=== PATIENT | female | born 1960 | race African-American/Black ===

== ENCOUNTER 2016-11-21 13:26 | Emergency (ER) | payer OTHER ==
[~2016-11-21] VITALS: Ht 175.3 cm; Wt 83.9 kg
[~2016-11-21 13:26] MED LIST: AMLO5TAB PO
[2016-11-21 13:37] VITALS: BP 121/74
--- NOTE | 2016-11-21 14:10 | NUR ---
Patient to OF2 at this time
--- NOTE | 2016-11-21 14:14 | NUR ---
Patient being evaluated by Dr. Panda
--- NOTE | 2016-11-21 14:17 | NUR ---
PATIENT PRESENTS TO ED WITH C/o bilateral knee pain, X2 DAYS,NO SWELLING NOTED. PT STATES I GOT AFTER EXERCISE, DENIES N/V/D; SKIN IS PINK/WARM/DRY; AAOX4 WITH EVEN AND STEADY GAIT; LUNGS CLEAR BL; HR EVEN AND REGULAR; PT DENIES ANY FEVER, CP, SOB, OR COUGH AT THIS TIME; PATIENT STATES PAIN OF 10/10 AT THIS TIME; PATIENT POSITIONED FOR COMFORT; HOB ELEVATED; BEDRAILS UP X2;
[2016-11-21] MEDS ORDERED: KETOROLAC 60 MG/2 ML VIAL IM ONE (14:35)
[2016-11-21 15:22] VITALS: BP 122/75
--- NOTE | 2016-11-21 15:23 | NUR ---
Patient discharged with v/s stable. Written and verbal after care instructions given and explained. Patient alert, oriented and verbalized understanding of instructions. Ambulatory with steady gait. All questions addressed prior to discharge. ID band removed. Patient advised to follow up with PMD. Rx of norco and celebrex given. Patient educated on indication of medication including possible reaction and side effects. Opportunity to ask questions provided and answered.
== END 2016-11-21 15:23 | disposition home or self-care (01) ==
LOC: MED 13:26
DX: S86.912A Strain of unspecified muscle(s) and tendon(s) at lower leg level, left leg, initial encounter (principal); S86.911A Strain of unspecified muscle(s) and tendon(s) at lower leg level, right leg, initial encounter; M17.0 Bilateral primary osteoarthritis of knee; I10 Essential (primary) hypertension; X50.0XXA Overexertion from strenuous movement or load, initial encounter; Y93.43 Activity, gymnastics; Y92.39 Other specified sports and athletic area as the place of occurrence of the external cause; Y99.8 Other external cause status
CPT/HCPCS: 29505; 81002; 81025; 96372; 99283; J1885; 29515

== ENCOUNTER 2016-12-02 11:06 | Emergency (ER) | payer OTHER ==
[~2016-12-02] VITALS: Ht 172.7 cm; Wt 83.9 kg
[~2016-12-02 11:06] MED LIST changes: -AMLO5TAB PO; +AMLODIPINE10 M1 PO; +BENAZEPRIL; +CLONIDINE0.1 M1 PO; +DYA; +ENALAPRIL10 M1 PO; +NORVASC5 MG PO
[2016-12-02 11:16] VITALS: BP 135/80
--- NOTE | 2016-12-02 11:20 | NUR ---
PATIENT PRESENTS TO ED WITH C/O BILAT KNEE PAIN S/P DOING SQUATS IN THE GYM. STATES RIGHT KNEE KEEPS "POPPING"; DENIES N/V/D; SKIN IS PINK/WARM/DRY; AAOX4 WITH EVEN AND STEADY GAIT; LUNGS CLEAR BL; HR EVEN AND REGULAR; PT DENIES ANY FEVER, CP, SOB, OR COUGH AT THIS TIME; PATIENT STATES PAIN OF 9/10 AT THIS TIME; VSS; PATIENT POSITIONED FOR COMFORT; HOB ELEVATED; BEDRAILS UP X2; BED DOWN. ER MD MADE AWARE OF PT STATUS.
--- NOTE | 2016-12-02 11:22 | NUR ---
DR ARCHER ASSESSING AAO PT AT BEDSIDE
[2016-12-02] MEDS ORDERED: KETOROLAC 60 MG/2 ML VIAL IM ONE (11:30)
[2016-12-02 12:30] VITALS: BP 121/77
== END 2016-12-02 12:30 | disposition home or self-care (01) ==
LOC: MED 11:06
DX: M25.561 Pain in right knee (principal); I10 Essential (primary) hypertension
CPT/HCPCS: 29505; 73562; 96372; 99284; J1885; Q0092

== ENCOUNTER 2017-03-11 14:27 | Emergency (ER) | payer OTHER ==
[~2017-03-11] VITALS: Ht 170.2 cm; Wt 82.6 kg
[~2017-03-11 14:27] MED LIST changes: +AMLO5TAB PO; -AMLODIPINE10 M1 PO; -BENAZEPRIL; -CLONIDINE0.1 M1 PO; -DYA; -ENALAPRIL10 M1 PO; -NORVASC5 MG PO
[2017-03-11 14:51] VITALS: BP 146/97
--- NOTE | 2017-03-11 15:02 | NUR ---
PATIENT IN OF. NECK PSIN TO SHOULDER X2 DAYS AFTER LIFTING WEIGHTS IN THE GYM. YESTERDAY
--- NOTE | 2017-03-11 15:04 | NUR ---
Jian PEREZ,WITH PATIENT IN OF
[2017-03-11] MEDS ORDERED: BUPIVACAINE-MPF 0.5% 10 ML VIAL INJ ONE (15:15)
[2017-03-11] MEDS ORDERED: LIDOCAINE 2% 1000 MG/50 ML VIAL INJ ONE (15:15)
[2017-03-11] MEDS ORDERED: TRIAMCINOLONE 40 MG/ML 5ML VIAL IA ONE (15:15)
--- NOTE | 2017-03-11 15:15 | NUR ---
PATIENT PUT IN BED 5 FOR PROCEDURE. TRIGGER POINT INJECTION OF THE LT. SCAPULA.
--- NOTE | 2017-03-11 15:54 | NUR ---
PATIENT TOLERATED PROCEDURE WELL
--- NOTE | 2017-03-11 15:54 | NUR ---
Kait prado in [facility] - 03/11/17 at 1600 by NOHELIA PROCEDURE TOLERATED PROCEDURE
[2017-03-11 16:05] VITALS: BP 163/97
--- NOTE | 2017-03-11 16:05 | NUR ---
Patient discharged with v/s stable. Written and verbal after care instructions given and explained. Patient alert, oriented and verbalized understanding of instructions. Ambulatory with steady gait. All questions addressed prior to discharge. ID band removed. Patient advised to follow up with PMD. Rx of NORCO,NAPROSYN given. Patient educated on indication of medication including possible reaction and side effects. Opportunity to ask questions provided and answered.
== END 2017-03-11 16:05 | disposition home or self-care (01) ==
LOC: MED 14:27
DX: M54.2 Cervicalgia (principal); M25.512 Pain in left shoulder; I10 Essential (primary) hypertension
CPT/HCPCS: 20552; 99284; J2001; J3301; J3490

== ENCOUNTER 2017-10-14 10:44 | Emergency (ER) | payer OTHER ==
[~2017-10-14] VITALS: Ht 172.7 cm; Wt 81.6 kg
[2017-10-14 10:56] VITALS: BP 137/97
--- NOTE | 2017-10-14 11:15 | NUR ---
PATIENT PRESENTS TO ED WITH B/L KNEE PAIN AND LEFT LEG PAIN . PT STATES A PICTURE FRAME FELL ON HER LEFT LEG CAUSING SWELLING AND BRUISING . DENIES N/V/D; SKIN IS PINK/WARM/DRY; AAOX4 WITH EVEN AND STEADY GAIT; LUNGS CLEAR BL; HR EVEN AND REGULAR; PT DENIES ANY FEVER, CP, SOB, OR COUGH AT THIS TIME; PATIENT STATES PAIN OF 0/10 AT THIS TIME; VSS; PATIENT POSITIONED FOR COMFORT; ER MD MADE AWARE OF PT STATUS.
--- NOTE | 2017-10-14 11:32 | NUR ---
Patient takent to U/S via wheelchair at this time.
[2017-10-14] MEDS ORDERED: IBUPROFEN 800 MG TAB PO ONE (12:05)
[2017-10-14 12:24] VITALS: BP 137/97
--- NOTE | 2017-10-14 12:25 | NUR ---
Patient discharged with v/s stable. Written and verbal after care instructions given and explained. Patient verbalized understanding. Ambulatory with steady gait. All questions addressed prior to discharge. Advised to follow up with PMD.
== END 2017-10-14 12:21 | disposition home or self-care (01) ==
LOC: MED 10:44
DX: S70.12XA Contusion of left thigh, initial encounter (principal); I10 Essential (primary) hypertension; Z79.899 Other long term (current) drug therapy; W20.8XXA Other cause of strike by thrown, projected or falling object, initial encounter; Y93.89 Activity, other specified; Y92.89 Other specified places as the place of occurrence of the external cause; Y99.8 Other external cause status
CPT/HCPCS: 93971; 99284

== ENCOUNTER 2018-03-12 14:58 | Emergency (ER) | payer OTHER ==
[~2018-03-12] VITALS: Ht 172.7 cm; Wt 87.5 kg
[2018-03-12 14:59] VITALS: BP 126/85
--- NOTE | 2018-03-12 15:08 | NUR ---
PT AMBULATED TO ER LOBBY WAITING FOR OPEN ER BED.
--- NOTE | 2018-03-12 15:25 | NUR ---
PT AMULATED TO ER BED 08
--- NOTE | 2018-03-12 15:48 | NUR ---
57/F PRESENT TO ER C/O RT LEG PAIN x 3 DAYS. PT STATES IF SHE STANDS TOO LONG HER RT LEG STARTS FEELING NUMB. PT STATES SHE MIGHT HAVE INJURED IT AT THE GYM LIFTING WEIGHTS. 9/10 ACHING PAIN
[2018-03-12] MEDS ORDERED: KETOROLAC 30 MG/ML VIAL IM ONE (15:55)
[2018-03-12 16:26] VITALS: BP 129/68
--- NOTE | 2018-03-12 16:27 | NUR ---
Patient discharged with v/s stable. Written and verbal after care instructions given and explained. Patient alert, oriented and verbalized understanding of instructions. Ambulatory with steady gait. All questions addressed prior to discharge. ID band removed. Patient advised to follow up with PMD. Rx of VALIUM AND NAPROSYN given. Patient educated on indication of medication including possible reaction and side effects. Opportunity to ask questions provided and answered.
== END 2018-03-12 16:27 | disposition home or self-care (01) ==
LOC: MED 14:58
DX: M54.31 Sciatica, right side (principal); I10 Essential (primary) hypertension; Z79.899 Other long term (current) drug therapy
CPT/HCPCS: 73590; 96372; 99284; J1885; Q0092

== ENCOUNTER 2018-08-07 17:32 | Emergency (ER) | payer OTHER ==
[~2018-08-07] VITALS: Ht 172.7 cm; Wt 87.1 kg
[2018-08-07 17:37] VITALS: BP 122/79
[2018-08-07] MEDS: KETOROLAC 30 MG/ML VIAL IM ONE (18:43)
[2018-08-07 19:11] VITALS: BP 132/76
== END 2018-08-07 19:11 | disposition home or self-care (01) ==
LOC: MED 17:32
DX: G89.29 Other chronic pain (principal); M25.561 Pain in right knee; I10 Essential (primary) hypertension; Z79.899 Other long term (current) drug therapy
CPT/HCPCS: 82948; 96372; 99283; J1885

== ENCOUNTER 2019-04-06 07:02 | Emergency (ER) | payer OTHER ==
[~2019-04-06] VITALS: Ht 172.7 cm; Wt 84.4 kg
[2019-04-06 07:15] VITALS: BP 153/103
--- NOTE | 2019-04-06 07:19 | NUR ---
PT AMBULATED TO BED 01 WITH STEADY GAIT. PT IN RR PROVIDING URINE SAMPLE.
--- NOTE | 2019-04-06 07:20 | NUR ---
58/F C/O 10/10 LEFT SIDE MONTEZ X 2 DAYS ACCOMPANIED BY BLURRED VISION/DRY MOUTH STARTING X 1 DAY AGO. PT STATES "IT FEELS LIKE I'M BEING ZAPPED ON THE SIDE OF MY HEAD". DENIES N/V. PMH-- HTN, ARTHRITIS.PATIENT STATES PAIN OF 10/10 AT THIS TIME. PATIENT POSITIONED FOR COMFORT; HOB ELEVATED; BEDRAILS UP X1; BED DOWN. ER MD MADE AWARE OF PT STATUS.
--- NOTE | 2019-04-06 07:39 | NUR ---
Patient being evaluated by DR BALBUENA at bedside.
[2019-04-06] MEDS: KETOROLAC 60 MG/2 ML VIAL IM ONE (07:45)
[2019-04-06 07:59] VITALS: BP 131/86
== END 2019-04-06 07:59 | disposition home or self-care (01) ==
LOC: MED 07:02
DX: I10 Essential (primary) hypertension (principal); Z79.899 Other long term (current) drug therapy
CPT/HCPCS: 81002; 81025; 96372; 99283; J1885

== ENCOUNTER 2019-05-27 12:59 | Emergency (ER) | payer OTHER ==
--- NOTE | 2019-05-27 13:05 | NUR ---
IST CALL IN ER LOBBY, NO ANSWER
--- NOTE | 2019-05-27 13:11 | NUR ---
PATIENT LEFT WITHOUT BEING SEEN BY DR. PAULSON. NO FURTHER CARE PROVIDED FOR PATIENT.
--- NOTE | 2019-05-27 13:11 | NUR ---
2ND CALL FOR PT IN ER LOBBY, NO ANSWER
== END 2019-05-27 13:11 | disposition left against medical advice (07) ==
LOC: MED 12:59
DX: Z53.21 Procedure and treatment not carried out due to patient leaving prior to being seen by health care provider (principal)

== ENCOUNTER 2019-05-28 11:08 | Emergency (ER) | payer OTHER ==
[~2019-05-28] VITALS: Ht 170.2 cm; Wt 86.6 kg
[2019-05-28 11:12] VITALS: BP 121/92
--- NOTE | 2019-05-28 11:17 | NUR ---
PT AMB TO BED 12 WITH STEADY GAIT
--- NOTE | 2019-05-28 11:30 | NUR ---
58/F BIBS. CAME IN COMPALINING OF KNEE PAIN 05/06. PT STATES SHE FEELS THAT HER "KNEE IS SWOLLEN, FEELS HEAVY AND ALL AROUND THE KNEE AREA THERE IS PAIN" KNEE PAIN STARTED 3X AGO SHE WAS WORKING OUT, DOEW LEG WORKOUTS 2X A WEEK NO HEAVY LIFITING AT MOST 20LBS. KNEE PROBLEMS BEGAN 5-6 YRS AGO. SYMPTOMS FLARE UP EVERY 6 MONTHS HAS GONE TO SEE SPECIALIST. PAIN GETS WORSE WHEN SHE DOES MECHANICAL MOVEMENTS, IS NOT SWOLLED, DISTAL AND POPLITEAL PULSE PRESENT. PATIENT PRESENTED WITH UTI SYMPTOMS X4 DAYS, PAIN ON URINATION, NO CHILLS, NO FEVER, NO FLANK PAIN, NO BLOOD ON URINE. CLEAR YELLOW. URINE SAMPLE COLLECTED. PMHX:ARTHRITIS, HTN RX:AMLODAPINE, PERCOCET
[2019-05-28] MEDS ORDERED: KETOROLAC 30 MG/ML VIAL IM ONE (11:45)
[2019-05-28] MEDS ORDERED: KETOROLAC 30 MG/ML VIAL ONE (11:46)
--- NOTE | 2019-05-28 12:05 | NUR ---
RT AT BEDSIDE
--- NOTE | 2019-05-28 12:42 | NUR ---
Patient discharged with v/s stable. Written and verbal after care instructions given and explained. Patient alert, oriented and verbalized understanding of instructions. Ambulatory with steady gait. All questions addressed prior to discharge. ID band removed. Patient advised to follow up with PMD. Rx of ANAPROX given. Patient educated on indication of medication including possible reaction and side effects. Opportunity to ask questions provided and answered.
--- NOTE | 2019-05-28 12:44 | NUR ---
WAITING ON KNEE BANDAGE ORDER FROM
[2019-05-28 12:54] VITALS: BP 131/83
== END 2019-05-28 12:42 | disposition home or self-care (01) ==
LOC: MED 11:08
DX: M17.11 Unilateral primary osteoarthritis, right knee (principal); I10 Essential (primary) hypertension; Z79.899 Other long term (current) drug therapy
CPT/HCPCS: 81002; 87086; 96372; 99283; J1885

== ENCOUNTER 2019-07-29 15:51 | Emergency (ER) | payer OTHER ==
[~2019-07-29] VITALS: Ht 172.7 cm; Wt 87.1 kg
[2019-07-29 16:18] VITALS: BP 113/64
--- NOTE | 2019-07-29 16:35 | NUR ---
PT 59 Y/O FEMALE BIB SELF FOR C/O DIZZINESS, BLURRED VISION, LIGHT HEADEDNESS, AND BODY ACHES X 2 DAYS. PT DENIES COUGH. PT DENIES N/V/D. AFEBRILE. PT STATES, " I FEEL DEHYDRATED." PT STATES SHE IS PEEING ABNORMALLY, "I PEE WAY TOO MUCH. MORE THAN USUAL." PT ADIMTS TO TAKING HYDROCHLOROTHIAZIDE AT HOME BUT DOES NOT REMEMBER THE DOSE. PT AXO X 4. RESPIRATIONS ARE EVEN AND UNLABORED. SKIN IS WARM AND DRY TO TOUCH. BED IN LOWEST POSITION AND LOCKED IN PLACE. PT RESTING IN BED TALKING ON PHONE. MED HX: HTN, ARTHRITIS ALLERGIES: NKA
--- NOTE | 2019-07-29 16:50 | NUR ---
AT BEDSIDE EXAMINING PT.
[2019-07-29] MEDS ORDERED: KETOROLAC 60 MG/2 ML VIAL IM ONE (16:55)
--- NOTE | 2019-07-29 17:17 | NUR ---
Patient discharged with v/s stable. Written and verbal after care instructions given and explained. Patient alert, oriented and verbalized understanding of instructions. Ambulatory with steady gait. All questions addressed prior to discharge. ID band removed. Patient advised to follow up with PMD. Rx of TAMIFLU, MOTRIN given. Patient educated on indication of medication including possible reaction and side effects. Opportunity to ask questions provided and answered.
[2019-07-29 17:19] VITALS: BP 113/64
== END 2019-07-29 17:17 | disposition home or self-care (01) ==
LOC: MED 15:51
DX: M79.10 Myalgia, unspecified site (principal); R42 Dizziness and giddiness; I10 Essential (primary) hypertension; Z79.899 Other long term (current) drug therapy; Z98.890 Other specified postprocedural states
CPT/HCPCS: 81002; 96372; 99283; J1885

== ENCOUNTER 2020-04-28 18:54 | Emergency (ER) | payer OTHER ==
[~2020-04-28] VITALS: Ht 172.7 cm; Wt 86.6 kg
[2020-04-28 19:09] VITALS: BP 143/92
[2020-04-28] MEDS ORDERED: KETOROLAC 60 MG/2 ML VIAL IM ONE (19:35)
[2020-04-28 19:56] VITALS: BP 143/92
== END 2020-04-28 19:59 | disposition home or self-care (01) ==
LOC: MED 18:54
DX: M25.561 Pain in right knee (principal); M54.5 Low back pain; N39.0 Urinary tract infection, site not specified; M19.90 Unspecified osteoarthritis, unspecified site; I10 Essential (primary) hypertension; Z98.890 Other specified postprocedural states; Z79.899 Other long term (current) drug therapy
CPT/HCPCS: 81002; 96372; 99283; J1885

== ENCOUNTER 2020-10-18 18:56 | Emergency (ER) | payer OTHER ==
[~2020-10-18] VITALS: Ht 172.7 cm; Wt 88.0 kg
[2020-10-18 19:01] VITALS: BP 116/78
== END 2020-10-18 19:56 | disposition left against medical advice (07) ==
LOC: MED 18:56
DX: M25.561 Pain in right knee (principal); M25.562 Pain in left knee; Z53.21 Procedure and treatment not carried out due to patient leaving prior to being seen by health care provider

== ENCOUNTER 2020-11-02 13:20 | Emergency (ER) | payer OTHER ==
[~2020-11-02] VITALS: Ht 172.7 cm; Wt 88.9 kg
[2020-11-02 13:23] VITALS: BP 135/90
[2020-11-02] MEDS ORDERED: KETOROLAC 60 MG/2 ML VIAL IM ONE (14:40)
[2020-11-02 14:47] LABS: BASOPHILS % (AUTO) 1.1 % (0.0-2.0); EOSINOPHILS # (AUTO) 0.2 K/uL (0-0.4); EOSINOPHILS % (AUTO) 4.2 % (0.0-4.0); HEMATOCRIT 37.2 % (36-48); LYMPHOCYTES # (AUTO) 1.9 K/uL (2.5-16.5); LYMPHOCYTES % (AUTO) 43.6 % (20.5-51.1); MEAN CORPUSCULAR HEMOGLOBIN 25 pg (27-31); MEAN CORPUSCULAR HGB CONC 32 g/dL (33-37); MEAN CORPUSCULAR VOLUME 77.7 fL (80-94); MONOCYTES # (AUTO) 0.4 K/uL (0.8-1.0); MONOCYTES % (AUTO) 8.6 % (1.7-9.3); NEUTROPHILS # (AUTO) 1.8 K/uL (1.8-7.7); NEUTROPHILS % (AUTO) 42.5 % (42.2-75.2); PLATELET COUNT (AUTO) 234 K/uL (140-450); RED CELL DISTRIBUTION WIDTH 15.1 % (11.6-13.7); WHITE BLOOD COUNT (AUTO) 4.3 K/uL (4.8-10.8)
[2020-11-02 15:02] LABS: ALBUMIN 3.4 g/dL (3.4-5.0); ANION GAP 8.7 (8-16); CARBON DIOXIDE 28.4 mmol/L (21-32); CREATININE 1.1 mg/dL (0.6-1.3); POTASSIUM 4.1 mmol/L (3.5-5.1); TOTAL BILIRUBIN 0.6 mg/dL (0.0-1.0)
[2020-11-02] MEDS ORDERED: AMLO5TAB PO (15:13)
[2020-11-02] MEDS ORDERED: MECL-303 PO (15:13)
[2020-11-02] MEDS ORDERED: IBUP-2213 PO (15:13)
[2020-11-02 15:17] VITALS: BP 135/90
== END 2020-11-02 15:17 | disposition home or self-care (01) ==
LOC: MED 13:20
DX: M25.561 Pain in right knee (principal); M25.562 Pain in left knee; R42 Dizziness and giddiness; I10 Essential (primary) hypertension; Z79.899 Other long term (current) drug therapy
CPT/HCPCS: 36415; 80053; 85025; 96372; 99283; J1885; 93005

== ENCOUNTER 2021-05-07 11:19 | Emergency (ER) | payer OTHER ==
[~2021-05-07] VITALS: Ht 160 cm; Wt 91.2 kg
[~2021-05-07 11:19] MED LIST changes: +IBUP-2213 PO; +MECL-303 PO
[2021-05-07 11:31] VITALS: BP 127/71
--- NOTE | 2021-05-07 11:51 | NUR ---
PT BEING TAKEN TO XRAY VIA WHEELCHAIR.
[2021-05-07] MEDS ORDERED: METH-1681 PO (13:01)
[2021-05-07] MEDS ORDERED: NAPR-54 PO (13:01)
[2021-05-07] MEDS ORDERED: LIDO1ADH47 TP (13:01)
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
[2021-05-07] MEDS: KETOROLAC 30 MG/ML VIAL IM ONE (13:20)
[2021-05-07 13:39] VITALS: BP 127/71
--- NOTE | 2021-05-07 13:39 | NUR ---
Patient discharged with v/s stable. Written and verbal after care instructions given and explained. Patient alert, oriented and verbalized understanding of instructions. Ambulatory with steady gait. All questions addressed prior to discharge. ID band removed. Patient advised to follow up with PMD. Rx of LIDOCAINE, ROBAXIN, AND NAPROSYN given. Patient educated on indication of medication including possible reaction and side effects. Opportunity to ask questions provided and answered.
== END 2021-05-07 13:39 | disposition home or self-care (01) ==
LOC: MED 11:19
DX: S39.012A Strain of muscle, fascia and tendon of lower back, initial encounter (principal); M54.2 Cervicalgia; R51.9 Headache, unspecified; I10 Essential (primary) hypertension; Z79.899 Other long term (current) drug therapy; V89.2XXA Person injured in unspecified motor-vehicle accident, traffic, initial encounter; Y93.89 Activity, other specified; Y92.89 Other specified places as the place of occurrence of the external cause; Y99.8 Other external cause status
CPT/HCPCS: 72110; 81002; 96372; 99283; J1885

== ENCOUNTER 2023-11-02 08:18 | Emergency (ER) | payer MEDICARE, OTHER ==
[~2023-11-02] VITALS: Ht 172.7 cm; Wt 85.7 kg
[~2023-11-02 08:18] MED LIST changes: +LIDO1ADH47 TP; +METH-1681 PO; +NAPR-54 PO
[2023-11-02 08:24] VITALS: BP 119/82; PULSE 63; RESP 18; TEMP 96.9; O2SAT 98
[2023-11-02] MEDS: NACL 0.9% 1,000 ML IV ONE (08:58)
[2023-11-02 08:59] VITALS: O2SAT 98
[2023-11-02 09:07] LABS: BASOPHILS # (AUTO) 0.1 K/uL (0.00-0.22); BASOPHILS % (AUTO) 3.5 % (0.0-2.0); EOSINOPHILS # (AUTO) 0.3 K/uL (0-0.4); EOSINOPHILS % (AUTO) 6.2 % (0.0-4.0); HEMATOCRIT 42.2 % (36-48); HEMOGLOBIN 13.7 g/dL (12.0-16.0); LYMPHOCYTES # (AUTO) 2.2 K/uL (2.5-16.5); MEAN CORPUSCULAR HEMOGLOBIN 25 pg (27-31); MEAN CORPUSCULAR HGB CONC 32 g/dL (33-37); MEAN CORPUSCULAR VOLUME 78.1 fL (80-94); MONOCYTES # (AUTO) 0.4 K/uL (0.8-1.0); MONOCYTES % (AUTO) 8.5 % (1.7-9.3); NEUTROPHILS # (AUTO) 1.2 K/uL (1.8-7.7); NEUTROPHILS % (AUTO) 28.8 % (42.2-75.2); PLATELET COUNT (AUTO) 258 K/uL (140-450); RED CELL DISTRIBUTION WIDTH 14.4 % (11.6-13.7); WHITE BLOOD COUNT (AUTO) 4.1 K/uL (4.8-10.8)
[2023-11-02 09:29] LABS: APPEARANCE,URINE CLEAR (CLEAR); BILIRUBIN,URINE NEGATIVE (NEGATIVE); BLOOD, URINE NEGATIVE (NEGATIVE); COLOR,URINE YELLOW (YELLOW); NITRITE, URINE NEGATIVE (NEGATIVE); PROTEIN,URINE NEGATIVE (NEGATIVE); UGLUCOSE NEGATIVE (NEGATIVE); UROBILINOGEN,URINE 0.2 EU/dL (0.2 - 1)
[2023-11-02 09:44] LABS: BACTERIA,URINE OCCASSIONAL /HPF (None Seen); LEUKOCYTE ESTERASE ,URINE TRACE (NEGATIVE); RBC,URINE 0-5 /HPF (0-5); SQUAMOUS EPITHELIAL CELL,UR 0-3 (FEW) /LPF (0-3 (FEW)); WBC,URINE 0-5 /HPF (0-5)
[2023-11-02 09:59] LABS: ALANINE AMINOTRANSFERASE 22 U/L (12-78); ALBUMIN 3.6 g/dL (3.4-5.0); ALKALINE PHOSPHATASE 51 U/L (50-136); ANION GAP 11.1 (8-16); ASPARTATE AMINOTRANSFERASE 19 U/L (15-37); CALCIUM 9.8 mg/dL (8.5-10.1); CARBON DIOXIDE 28.6 mmol/L (21-32); CHLORIDE 106 mmol/L (98-107); GFR ARICAN-AMERICAN 72 mL/min (>90); GFR NON ARICAN-AMERICAN 59 mL/min (>90); GLUCOSE 91 mg/dL (74-106); POTASSIUM 3.7 mmol/L (3.5-5.1); SODIUM SERUM 142 mmol/L (136-145); TOTAL BILIRUBIN 0.6 mg/dL (0.0-1.0); UREA NITROGEN, BLOOD 16 mg/dL (7-18)
[2023-11-02 10:44] VITALS: BP 99/79; PULSE 58; RESP 20; TEMP 98.1; O2SAT 100
== END 2023-11-02 10:44 | disposition home or self-care (01) ==
LOC: MED 08:18
DX: R53.1 Weakness (principal); R35.0 Frequency of micturition; R00.2 Palpitations; I10 Essential (primary) hypertension; Z79.899 Other long term (current) drug therapy
CPT/HCPCS: 36415; 80053; 81001; 84484; 85025; 87086; 93005; 96360; 99284; J7030

== ENCOUNTER 2023-12-25 18:13 | Emergency (ER) | payer MEDICARE, OTHER ==
[~2023-12-25] VITALS: Ht 172.7 cm; Wt 87.7 kg
[~2023-12-25 18:13] MED LIST changes: +NAPR-337 PO; -NAPR-54 PO
[2023-12-25 18:55] VITALS: BP 124/76; PULSE 63; RESP 14; TEMP 98.1; O2SAT 100
[2023-12-25] MEDS: KETOROLAC 60 MG/2 ML VIAL IM ONE (20:15)
[2023-12-25 20:18] VITALS: BP 122/76; PULSE 63; RESP 14; TEMP 98.1; O2SAT 100
== END 2023-12-25 20:18 | disposition home or self-care (01) ==
LOC: MED 18:13
DX: M25.551 Pain in right hip (principal); M79.661 Pain in right lower leg; I10 Essential (primary) hypertension; Z79.1 Long term (current) use of non-steroidal anti-inflammatories (NSAID); Z79.899 Other long term (current) drug therapy
CPT/HCPCS: 73502; 96372; 99283; J1885

== ENCOUNTER 2024-02-07 19:47 | Inpatient (IN) | payer MEDICARE, OTHER ==
[~2024-02-07] VITALS: Ht 172.7 cm; Wt 83.9 kg
[2024-02-07 19:53] VITALS: BP 165/97; PULSE 57; RESP 16; TEMP 98.2; O2SAT 100
[2024-02-07 20:29] LABS: ANION GAP 10.4 (8-16); BASOPHILS # (AUTO) 0.1 K/uL (0.00-0.22); BASOPHILS % (AUTO) 1.2 % (0.0-2.0); CALCIUM 10.5 mg/dL (8.5-10.1); CARBON DIOXIDE 28.8 mmol/L (21-32); CREATININE 1.1 mg/dL (0.6-1.3); EOSINOPHILS # (AUTO) 0.2 K/uL (0-0.4); HEMATOCRIT 38.3 % (36-48); HEMOGLOBIN 12.3 g/dL (12.0-16.0); LYMPHOCYTES # (AUTO) 2.2 K/uL (2.5-16.5); LYMPHOCYTES % (AUTO) 38.5 % (20.5-51.1); MEAN CORPUSCULAR HEMOGLOBIN 26 pg (27-31); MEAN CORPUSCULAR HGB CONC 32 g/dL (33-37); MEAN CORPUSCULAR VOLUME 81.2 fL (80-94); MONOCYTES # (AUTO) 0.4 K/uL (0.8-1.0); MONOCYTES % (AUTO) 7.9 % (1.7-9.3); NEUTROPHILS # (AUTO) 2.8 K/uL (1.8-7.7); NEUTROPHILS % (AUTO) 49.4 % (42.2-75.2); PLATELET COUNT (AUTO) 284 K/uL (140-450); POTASSIUM 4.2 mmol/L (3.5-5.1); RED BLOOD CELL COUNT(AUTO) 4.72 MIL/uL (4.20-5.40); WHITE BLOOD COUNT (AUTO) 5.6 K/uL (4.8-10.8)
[2024-02-07 20:34] LABS: INR 0.97 (0.8-1.2); PARTIAL THROMBOPLASTIN TIME 22.4 secs (22-35.6); PROTHROMBIN TIME 10.2 secs (10.8-13.4)
[2024-02-07 20:36] LABS: ALANINE AMINOTRANSFERASE 24 U/L (12-78); ALBUMIN 3.5 g/dL (3.4-5.0); ALKALINE PHOSPHATASE 52 U/L (50-136); ASPARTATE AMINOTRANSFERASE 21 U/L (15-37); BILIRUBIN,DIRECT 0.1 mg/dL (0.0-0.3); MAGNESIUM 2.1 mg/dL (1.8-2.4); PHOSPHORUS 2.8 mg/dL (2.5-4.9); TOTAL BILIRUBIN 0.3 mg/dL (0.0-1.0)
[2024-02-07] MEDS ORDERED: MORPHINE SULFATE 2 MG/ML SYR IVP PRN (22:30)
[2024-02-07] MEDS ORDERED: ACETAMINOPHEN 325 MG TAB PO PRN (22:30)
[2024-02-08] MEDS: HYDROcodone/APAP 5/325 MG 1 TAB TAB PO PRN (00:17)
[2024-02-08 01:15] VITALS: PULSE 86; RESP 18; O2SAT 99
[2024-02-08 01:20] VITALS: BP 143/68; PULSE 86; RESP 18; TEMP 97.2; O2SAT 99
[2024-02-08] MEDS ORDERED: LORA-476 PO (01:28)
[2024-02-08] MEDS ORDERED: ZOLP5TAB1 PO (01:29)
[2024-02-08 04:00] VITALS: BP 155/69; PULSE 50; RESP 18; TEMP 97.1; O2SAT 99
[2024-02-08 06:16] LABS: ANION GAP 9.2 (8-16); CALCIUM 9.6 mg/dL (8.5-10.1); CARBON DIOXIDE 27.5 mmol/L (21-32); CREATININE 0.9 mg/dL (0.6-1.3); MAGNESIUM 1.9 mg/dL (1.8-2.4); PHOSPHORUS 2.8 mg/dL (2.5-4.9); POTASSIUM 3.7 mmol/L (3.5-5.1); TOTAL BILIRUBIN 0.3 mg/dL (0.0-1.0)
[2024-02-08 08:00] VITALS: BP 165/72; PULSE 53; RESP 17; TEMP 97.1; O2SAT 100
[2024-02-08 11:44] LABS: BASOPHILS # (AUTO) 0.1 K/uL (0.00-0.22); BASOPHILS % (AUTO) 1.2 % (0.0-2.0); EOSINOPHILS # (AUTO) 0.2 K/uL (0-0.4); EOSINOPHILS % (AUTO) 4.2 % (0.0-4.0); HEMATOCRIT 35.1 % (36-48); HEMOGLOBIN 11.2 g/dL (12.0-16.0); LYMPHOCYTES # (AUTO) 2.2 K/uL (2.5-16.5); LYMPHOCYTES % (AUTO) 44.4 % (20.5-51.1); MEAN CORPUSCULAR HEMOGLOBIN 26 pg (27-31); MEAN CORPUSCULAR HGB CONC 32 g/dL (33-37); MEAN CORPUSCULAR VOLUME 81.5 fL (80-94); MONOCYTES # (AUTO) 0.4 K/uL (0.8-1.0); MONOCYTES % (AUTO) 8.4 % (1.7-9.3); NEUTROPHILS # (AUTO) 2.1 K/uL (1.8-7.7); NEUTROPHILS % (AUTO) 41.8 % (42.2-75.2); PLATELET COUNT (AUTO) 251 K/uL (140-450); RED BLOOD CELL COUNT(AUTO) 4.31 MIL/uL (4.20-5.40); RED CELL DISTRIBUTION WIDTH 16.2 % (11.6-13.7); WHITE BLOOD COUNT (AUTO) 4.9 K/uL (4.8-10.8)
== END 2024-02-08 09:20 | disposition left against medical advice (07) | DRG 66 ==
LOC: MED 19:47 → MTU 22:28
PROVIDERS: ADMIT Student in an Organized Health Care Education/Training Program; ATTEND Student in an Organized Health Care Education/Training Program
DX: I63.9 Cerebral infarction, unspecified (principal); I10 Essential (primary) hypertension; Z53.29 Procedure and treatment not carried out because of patient's decision for other reasons; Z79.899 Other long term (current) drug therapy
CPT/HCPCS: 36415; 70450; 71045; 80048; 80053; 80076; 83735; 84100; 84484; 85025; 85610; 85730; 93005; 99285; Q0092